=== PATIENT | female | born 1975 | race Caucasian/White ===

== ENCOUNTER 2017-12-03 12:32 | Outpatient (CLI) | payer OTHER | END 2017-12-03 12:33 | disposition home or self-care (01) | LOC: BICMRI 12:32 | PROVIDERS: ATTEND Family Medicine | DX: S49.91XD Unspecified injury of right shoulder and upper arm, subsequent encounter (principal) ==

== ENCOUNTER 2018-01-24 08:24 | Outpatient (CLI) | payer OTHER ==
[2018-01-24] MEDS ORDERED: Iopamidol 300 61% 50 ML VIAL FS ONE (08:45)
[2018-01-24] MEDS ORDERED: Lidocaine 1% PF 10 ML AMP ONE (08:45)
[2018-01-24] MEDS ORDERED: Gadobenate Dimeglumine 529 MG/1 ML (20ML VIAL) ONE (08:45)
[2018-01-24] MEDS ORDERED: EPINEPHrine 1 MG/ML AMP ONE (08:45)
--- NOTE | 2018-01-24 11:03 | RAD ---
RIGHT SHOULDER ARTHROGRAM: HISTORY: A 42-year-old female with a history of right shoulder pain, strain of right shoulder, subsequent enco unter. FINDINGS: Following informed consent, the patient was prepped and draped in the usual sterile fashion. Local a nesthesia was obtained with 1% Xylocaine. A 22-gauge spinal needle was introduced into the anterior superior glenohumeral joint. Approximately 15 cc of iodinated and Gadolinium contrast media was inje cted. Fluoroscopy time 1.4 minutes with 91.2 mGy*^m2. No evidence for extension of contrast into the subac romial bursa. There is evidence for a lateral acromial undersurface spur. IMPRESSION: Successful right shoulder arthrogram. Undersurface lateral acromial spur. The patient was moved to MRI for postarthrogram MRI to follow. POS: [facility]
--- NOTE | 2018-01-24 12:02 | MRI ---
RIGHT SHOULDER MRI WITH ARTHROGRAM CONTRAST: Date: 01/24/18 HISTORY: Right shoulder pain with difficulty lifting and raising above head. Exam was performed following a right shoulder arthrogram. FINDINGS: Multiplanar, multisequence MRI examination demonstrates mild degenerative changes of the AC joint. Th ere is some slight anterior and lateral downsloping of the lateral acromion with a somewhat prominent acromial cortical ligament. The rotator cuff is intact. No rotator cuff tear. Rotator cuff muscles a re within normal limits of signal and volume. The labrum appears unremarkable. No acute osteochondral defect. There is some minimal anterior superior periarticular contrast extension probably secondary to injection. IMPRESSION: No MRI evidence for significant acute internal derangement. AC joint arthrosis changes. No evidence f or labral tear or rotator cuff tear. POS: [facility]
--- NOTE | 2018-01-24 12:06 | MRI ---
MRI CERVICAL SPINE WITHOUT IV CONTRAST: Date: 01/24/18 HISTORY: Strain of right shoulder, subsequent encounter, difficulty lifting and raising right shoulder over he ad. FINDINGS: The vertebral body heights and marrow signal are maintained. There are disc osteophyte complexes at C 4-5-6-7 levels. These cause impingement of the anterior thecal sac without cord impingement or cord c ompression. There is mild left-sided neural foraminal stenosis at C5-6 level. The cervical spinal cor d demonstrate normal course, caliber, and signal. No tonsillar herniation is seen. The paraspinal mus culature is normal. IMPRESSION: Cervical spondylosis with mild left neural foraminal stenosis at C5-6 level. No evidence of cord comp ression. POS: [facility]
== END 2018-01-24 08:25 | disposition home or self-care (01) ==
LOC: RAD 08:24
PROVIDERS: ATTEND Orthopaedic Surgery
DX: S46.911D Strain of unspecified muscle, fascia and tendon at shoulder and upper arm level, right arm, subsequent encounter (principal); M47.892 Other spondylosis, cervical region; M19.011 Primary osteoarthritis, right shoulder; M99.81 Other biomechanical lesions of cervical region
CPT/HCPCS: 23350; 72141; A9579; J0171; J7050

== ENCOUNTER 2018-06-19 12:55 | Outpatient (CLI) | payer OTHER | END 2018-06-19 12:56 | disposition home or self-care (01) | LOC: BICMAMMO 12:55 | PROVIDERS: ATTEND Family Medicine | DX: Z12.31 Encounter for screening mammogram for malignant neoplasm of breast (principal); Z80.3 Family history of malignant neoplasm of breast | CPT/HCPCS: 77063; 77067 ==

== ENCOUNTER 2019-06-05 13:16 | Outpatient (CLI) | payer OTHER | END 2019-06-05 13:17 | disposition home or self-care (01) | LOC: DTY/OP 13:16 | PROVIDERS: ATTEND Surgery | DX: E66.01 Morbid (severe) obesity due to excess calories (principal) | CPT/HCPCS: 97802 ==

== ENCOUNTER 2019-07-06 13:04 | Outpatient (CLI) | payer OTHER | END 2019-07-06 13:05 | disposition home or self-care (01) | LOC: DTY/OP 13:04 | PROVIDERS: ATTEND Surgery | DX: E66.01 Morbid (severe) obesity due to excess calories (principal) | CPT/HCPCS: 97802 ==

== ENCOUNTER 2019-08-03 13:03 | Outpatient (CLI) | payer OTHER | END 2019-08-03 13:04 | disposition home or self-care (01) | LOC: DTY/OP 13:03 | PROVIDERS: ATTEND Surgery | DX: E66.01 Morbid (severe) obesity due to excess calories (principal) | CPT/HCPCS: 97802 ==

== ENCOUNTER 2019-09-02 12:59 | Outpatient (CLI) | payer OTHER | END 2019-09-02 13:00 | disposition home or self-care (01) | LOC: DTY/OP 12:59 | PROVIDERS: ATTEND Surgery | DX: E66.01 Morbid (severe) obesity due to excess calories (principal) | CPT/HCPCS: 36415; 80053; 80061; 81001; 83036; 84439; 84443; 84481; 97802 ==

== ENCOUNTER 2019-09-08 19:47 | Emergency (ER) | payer OTHER ==
[2019-09-08 20:15] LABS: #Basophils 0.1 thou/uL (0.0-0.2); #Eosinphils 0.2 thou/uL (0.0-0.7); #Lymphocytes 4.5 thou/uL (1.20-3.40); #Monocytes 0.5 thou/uL (0.11-0.59); #Neutrophils 4.5 thou/uL (1.40-6.50); %Basophils 1.5 % (0.0-1.0); %Eosinophils 1.9 % (0.0-10.0); %Lymphocytes 45.8 % (21.0-51.0); %Monocytes 4.6 % (0.0-10.0); %Neutrophils 46.3 % (42.0-75.0); Hemoglobin 14.9 g/dL (12.0-16.0); Mean Corpuscular HGB CONC 34.2 g/dL (32.0-36.0); Mean Corpuscular Hemoglobin 30.5 pg (27.0-31.0); Mean Corpuscular Volume 89.3 fL (78.0-98.0); Mean Platelet Volume 8.2 fL (7.4-10.4); Platelet Count 291 thou/uL (130-400); RBC Distribution Width 11.4 % (11.5-14.5); Red Blood Cell (RBC) Count 4.88 mill/uL (4.20-5.40); White Blood Cell (WBC) Count 9.8 thou/uL (4.8-10.8)
[2019-09-08 20:18] LABS: Bilirubin Negative (Negative); Blood, Urine Negative (Negative); Clarity Clear (Clear); Glucose, Urine (Dipstick) Normal (Negative); Leukocyte Negative Leu/uL (Negative); Nitrite Negative (Negative); Protein, Urine (Dipstick) Negative (Neg-Trace); Urobilinogen Normal mg/dL (Less than 2)
--- NOTE | 2019-09-08 20:26 | RAD ---
CHEST ONE VIEW: 09/08/19 HISTORY: Chest pain. COMPARISON: 03/31/13 study. Heart size and mediastinum are within normal limits. Lungs are clear of any focal infiltrative proces s. IMPRESSION: No active intrathoracic disease. POS: [facility]
[2019-09-08 20:30] LABS: Pregnancy Test - Urine (BHCG) Negative (Negative); Pregu Control Background? CLEAR/WHITE (CLR/WHITE); Pregu Control Bar Appear? YES (CONTROL BAR); Specific Gravity 1.012 (1.002-1.036)
[2019-09-08 20:39] LABS: ALT (SGPT) 81 U/L (8-55); AST (SGOT) 61 U/L (5-34); Albumin 4.6 g/dL (3.5-5.0); Alkaline Phosphatase 84 U/L (40-110); Anion Gap 14 mmol/L (10-20); BUN (Urea Nitrogen) 10 mg/dL (7.0-18.7); Bilirubin, Total 0.4 mg/dL (0.2-1.2); CK (CPK) 71 U/L (29-168); Calc. Creatinine Clearance 0 mL/min (70-130); Calcium 9.9 mg/dL (7.8-10.44); Carbon Dioxide 27 mmol/L (22-29); Chloride 104 mmol/L (98-107); Estimated GFR-MDRD 84; Globulin 3.2 g/dL (2.4-3.5); Glucose 116 mg/dL (70-105); Potassium 3.6 mmol/L (3.5-5.1); Protein, Total 7.8 g/dL (6.0-8.3); Sodium 141 mmol/L (136-145)
== END 2019-09-08 21:59 | disposition home or self-care (01) ==
LOC: ERS 19:47
DX: R07.9 Chest pain, unspecified (principal); G43.909 Migraine, unspecified, not intractable, without status migrainosus; E03.9 Hypothyroidism, unspecified; M06.9 Rheumatoid arthritis, unspecified; F32.9 Major depressive disorder, single episode, unspecified; Z79.899 Other long term (current) drug therapy
CPT/HCPCS: 36415; 71045; 80053; 81003; 81025; 82550; 84484; 85025; 93005

== ENCOUNTER 2019-10-28 08:54 | Outpatient (CLI) | payer OTHER ==
--- NOTE | 2019-10-28 11:31 | RAD ---
XR Chest Pa Lat STANDARD HISTORY: Preop COMPARISON: 03/15/2016 exam FINDINGS: Heart size and mediastinum are within normal limits. The lungs are clear of infiltrates. No significant bony findings. IMPRESSION: No active intrathoracic disease.
[2019-10-28 13:00] LABS: #Basophils 0.1 thou/uL (0.0-0.2); #Eosinphils 0.2 thou/uL (0.0-0.7); #Lymphocytes 3.2 thou/uL (1.20-3.40); #Monocytes 0.6 thou/uL (0.11-0.59); #Neutrophils 5.2 thou/uL (1.40-6.50); %Eosinophils 1.6 % (0.0-10.0); %Monocytes 6.1 % (0.0-10.0); %Neutrophils 56.3 % (42.0-75.0); Hemoglobin 13.4 g/dL (12.0-16.0); Mean Corpuscular HGB CONC 33.7 g/dL (32.0-36.0); Mean Corpuscular Hemoglobin 30.8 pg (27.0-31.0); Mean Corpuscular Volume 91.3 fL (78.0-98.0); Mean Platelet Volume 8.6 fL (7.4-10.4); Platelet Count 294 thou/uL (130-400); RBC Distribution Width 11.9 % (11.5-14.5); Red Blood Cell (RBC) Count 4.35 mill/uL (4.20-5.40); White Blood Cell (WBC) Count 9.2 thou/uL (4.8-10.8)
[2019-10-28 13:25] LABS: ALT (SGPT) 66 U/L (8-55); AST (SGOT) 53 U/L (5-34); Albumin 4.2 g/dL (3.5-5.0); Alkaline Phosphatase 74 U/L (40-110); Anion Gap 11 mmol/L (10-20); BUN (Urea Nitrogen) 17 mg/dL (7.0-18.7); Bilirubin, Total 0.4 mg/dL (0.2-1.2); Calc. Creatinine Clearance 0 mL/min (70-130); Calcium 9.6 mg/dL (7.8-10.44); Carbon Dioxide 24 mmol/L (22-29); Chloride 106 mmol/L (98-107); Estimated GFR-MDRD 90; Globulin 2.8 g/dL (2.4-3.5); Glucose 95 mg/dL (70-105); Sodium 137 mmol/L (136-145)
== END 2019-10-28 08:55 | disposition home or self-care (01) ==
LOC: LABBT 08:54
PROVIDERS: ATTEND Surgery
DX: Z01.818 Encounter for other preprocedural examination (principal); E66.01 Morbid (severe) obesity due to excess calories
CPT/HCPCS: 71046; 80053; 83036; 85025; 93005; 93010

== ENCOUNTER 2019-10-28 10:15 | Inpatient (IN) | payer OTHER ==
[2019-12-17] MEDS ORDERED: Dexamethasone 20 MG/5 ML VIAL ONE (10:06)
[2019-12-17] MEDS ORDERED: Rocuronium Bromide 10 MG/ML (10ML VIAL) ONE (10:06)
[2019-12-17] MEDS ORDERED: PROPOFOL 200 MG/20 ML VIAL ONE (10:06)
[2019-12-17] MEDS ORDERED: Ondansetron PF 4 MG/2 ML Vial ONE (10:06)
[2019-12-17] MEDS ORDERED: Lidocaine 1% PF 5 ML VIAL ONE (10:06)
[2019-12-17] MEDS ORDERED: Glycopyrrolate 0.2 MG/ML 5 ML SYRINGE ONE (10:06)
[2019-12-17] MEDS ORDERED: Heparin 5,000 UNITS/ML VIAL ONE (11:15)
[2019-12-17] MEDS ORDERED: Fentanyl 250 MCG/5 ML VIAL ONE (11:51)
[2019-12-17] MEDS ORDERED: Bupivacaine 0.25% HCL 30 ML VIAL ONE (11:53)
[2019-12-17] MEDS ORDERED: Lidocaine 1% w/Epinephrine 1:100K 20 ML VIAL ONE (11:53)
[2019-12-17] MEDS ORDERED: Promethazine HCl 25 MG/ML VIAL IM PRN ×2 (12:39→12:40)
[2019-12-17] MEDS ORDERED: Promethazine HCl 25 MG/ML VIAL SLOW IVP PRN (12:39)
[2019-12-17] MEDS ORDERED: Ondansetron HCl/PF 4 MG/2 ML Vial IVP PRN (12:39)
[2019-12-17] MEDS ORDERED: HYDROmorphone 2 MG/ML VIAL SLOW IVP PRN (12:39)
[2019-12-17] MEDS ORDERED: Meperidine HCl/PF 25 MG/ML VIAL SLOW IVP PRN (12:39)
[2019-12-17] MEDS ORDERED: HYDROmorphone 10 mg/100 ml CADD IVPB PRN (12:40)
[2019-12-17] MEDS ORDERED: diphenhydrAMINE 25 MG CAP PO PRN (12:40)
[2019-12-17] MEDS ORDERED: Naloxone HCl 0.4 mg/ml Vial IV PRN (12:40)
[2019-12-17] MEDS ORDERED: diphenhydrAMINE 50 MG/ML VIAL IM PRN (12:40)
[2019-12-17] MEDS ORDERED: diphenhydrAMINE 50 MG/ML VIAL IVP PRN ×2 (12:40→13:26)
[2019-12-17] MEDS ORDERED: Zolpidem Tartrate 5 MG TAB PO PRN (12:40)
[2019-12-17] MEDS ORDERED: Communication Order-Pharmacy FS SCH (12:45)
[2019-12-17] MEDS ORDERED: Ondansetron PF 4 MG/2 ML Vial IVP PRN (13:26)
[2019-12-17] MEDS ORDERED: hydrALAZINE 20 MG/ML VIAL SLOW IVP PRN (13:26)
[2019-12-17] MEDS ORDERED: Hydrocodone-Acetamin 15 ML UDCUP PO PRN (13:26)
[2019-12-17] MEDS ORDERED: Dextrose 5% in Water 1,000 ML IV PRN (13:26)
[2019-12-17] MEDS ORDERED: Dextrose 50% Abboject 50 ML SYRINGE SLOW IVP PRN (13:26)
[2019-12-17] MEDS ORDERED: HYDROmorphone 2 MG/ML VIAL ONE (13:39)
[2019-12-17] MEDS ORDERED: Fentanyl 100 MCG/2 ML VIAL ONE (14:07)
[2019-12-17] MEDS ORDERED: D5 1/2 NS w/20 mEq KCL 1,000 ML ONE (14:42)
[2019-12-17] MEDS ORDERED: hydrALAZINE 20 MG/ML VIAL ONE (15:12)
--- NOTE | 2019-12-17 16:00 | OP ---
DATE OF PROCEDURE: 12/17/2019 PREOPERATIVE DIAGNOSES: 1. Morbid obesity with a body mass index of 35. 2. Hypertension. POSTOPERATIVE DIAGNOSES: 1. Morbid obesity with a body mass index of 35. 2. Hypertension. 3. Paraesophageal hiatal hernia. PROCEDURES PERFORMED: 1. Laparoscopic sleeve gastrectomy with [place] staple line reinforcements and 38-Tajik bougie. 2. Laparoscopic paraesophageal hiatal hernia repair without fundoplication. 3. Esophagogastroduodenoscopy. ANESTHESIA: General. ESTIMATED BLOOD LOSS: Minimal. COMPLICATIONS: None. SPECIMEN: Stomach. FINDINGS: Hiatal hernia. Normal postoperative EGD. DESCRIPTION OF PROCEDURE: The patient was taken to the operating room and laid supine on the operating room table. After general anesthetic was obtained, arms and legs were double strapped to bariatric table. OG tube was used to decompress the stomach. Left subcostal 5-mm Optiview trocar was placed in usual fashion and high-flow pneumoperitoneum was obtained. A 12-mm ports were placed to the right and left of the umbilicus, 5-mm port placed right subcostal. A 5-mm incision made at the xiphoid and Adam was used to raise the liver off the GE junction. Short gastrics were taken down from the mid body of stomach to the left gabrielle of diaphragm. Left gabrielle, posterior fundus, and angle of His this was completely dissected revealing a hiatal hernia. A circumferential dissection of the esophagus was performed on the medial aspect of the stomach. The bare area was opened, so the right side could be dissected. The fundus of the stomach was brought back down into the abdominal cavity. Short gastrics were taken down to a distance of 6 cm proximal to the pylorus. OG tube was removed and a 38 bougie was brought in its tip, left in the antrum of the stomach. Multiple loads of Schuyler stapling device were used to perform the sleeve. The first fired up at a distance of 6 cm proximal to the pylorus, angled up towards the incisura. Multiple loads were then fired up along the bougie. Stomach was completely transected at the angle of His. The stomach was removed from the left abdominal incision. This fascial defect was closed using GraNee needle and 0 Vicryl tie. A tie knot and 0 Ethibond sutures were used to close the posterior crura utilizing one stitch. The bougie was removed. EGD scope was passed through the esophagus and stomach to the level of duodenum without obstruction. There was no stricture at the incisura. There was no involvement of the staple line with the GE junction. EGD scope was used to decompress the stomach. It was pulled and removed. The Adam retractor was removed under direct visualization without bleeding. All port sites were removed under direct visualization without bleeding and pneumoperitoneum was let down. 4-0 Monocryl and Dermabond were used to close all skin incisions after they were irrigated. The patient was sent to recovery in stable condition. All instrument counts, needle counts, and lap counts were correct. Job ID: [id number]
[2019-12-17] MEDS ORDERED: Pantoprazole 40 MG VIAL IVP SCH (17:45)
[2019-12-17] MEDS: D5 1/2 NS w/20 mEq KCL 1,000 ML IV SCH ×2 (17:47→22:51)
[2019-12-17 19:19] VITALS: BMI 35.9
[2019-12-17] MEDS: Enoxaparin Sodium 40 MG/0.4 ML SYRINGE SC SCH (21:17)
[2019-12-17] MEDS: Ondansetron PF 4 MG/2 ML Vial IVP PRN (23:43)
[2019-12-18] MEDS: D5 1/2 NS w/20 mEq KCL 1,000 ML IV SCH ×3 (03:53→20:58)
[2019-12-18 05:30] LABS: #Lymphocytes 1.8 thou/uL (1.20-3.40); #Monocytes 0.8 thou/uL (0.11-0.59); #Neutrophils 10.5 thou/uL (1.40-6.50); %Basophils 0.2 % (0.0-1.0); %Eosinophils 0.2 % (0.0-10.0); %Lymphocytes 13.5 % (21.0-51.0); %Monocytes 6.3 % (0.0-10.0); %Neutrophils 79.8 % (42.0-75.0); Hemoglobin 13.8 g/dL (12.0-16.0); Mean Corpuscular HGB CONC 33.1 g/dL (32.0-36.0); Mean Corpuscular Hemoglobin 31.1 pg (27.0-31.0); Mean Corpuscular Volume 93.8 fL (78.0-98.0); Mean Platelet Volume 8.3 fL (7.4-10.4); Platelet Count 316 thou/uL (130-400); Red Blood Cell (RBC) Count 4.43 mill/uL (4.20-5.40); White Blood Cell (WBC) Count 13.1 thou/uL (4.8-10.8)
[2019-12-18 05:49] LABS: Anion Gap 13 mmol/L (10-20); BUN (Urea Nitrogen) 6 mg/dL (7.0-18.7); Calc. Creatinine Clearance 145 mL/min (70-130); Calcium 9.7 mg/dL (7.8-10.44); Carbon Dioxide 22 mmol/L (22-29); Chloride 103 mmol/L (98-107); Estimated GFR-MDRD Greater than 90; Glucose 129 mg/dL (70-105); Potassium 4.3 mmol/L (3.5-5.1); Sodium 134 mmol/L (136-145)
[2019-12-18] MEDS: Levothyroxine Sodium 100 MCG TAB PO SCH (06:23)
[2019-12-18] MEDS: Amlodipine 5 MG TAB PO SCH (08:04)
[2019-12-18] MEDS: Losartan 25 MG TAB PO SCH (08:04)
[2019-12-18] MEDS: Ondansetron PF 4 MG/2 ML Vial IVP PRN ×2 (08:04→15:10)
[2019-12-18] MEDS: Pantoprazole 40 MG VIAL IVP SCH (08:04)
[2019-12-18] MEDS ORDERED: traMADol HCl 50 MG TAB PO PRN ×2 (08:31→08:53)
[2019-12-18] MEDS ORDERED: Fentanyl 100 MCG/2 ML VIAL SLOW IVP PRN (08:31)
[2019-12-18] MEDS: traMADol HCl 50 MG TAB PO PRN ×2 (10:33→16:32)
[2019-12-18] MEDS: Promethazine HCl 25 MG/ML VIAL IM PRN ×2 (10:38→20:51)
--- NOTE | 2019-12-18 15:57 | PDOC.GSPN ---
Surgery Progress Note: Subj - Subjective Narrative: c/o nausea throughout day, pain at xiphoid Surgery Progress Note: Obj - Vital signs Vital signs: Vital Signs - Most Recent Temp Pulse Resp BP Pulse Ox 97.8 F 92 18 154/87 H 96 12/18/19 15:15 12/18/19 15:15 12/18/19 15:15 12/18/19 15:15 12/18/19 15:15 - Physical Exam General: no distress Respiratory: clear to auscultation Abdomen: soft, appropriately tender Wound: healing well Surgery Progress Note: Results - Labs Result Diagrams: 12/18/19 05:07 12/18/19 05:06 Lab results: Laboratory Results - last 24 hr 12/18/19 12/18/19 05:06 05:07 WBC 13.1 H RBC 4.43 Hgb 13.8 Hct 41.5 MCV 93.8 MCH 31.1 H MCHC 33.1 RDW 12.0 Plt Count 316 MPV 8.3 Neutrophils % 79.8 H Lymphocytes % 13.5 L Monocytes % 6.3 Eosinophils % 0.2 Basophils % 0.2 Neutrophils # 10.5 H Lymphocytes # 1.8 Monocytes # 0.8 H Eosinophils # 0.0 Basophils # 0.0 Sodium 134 L Potassium 4.3 Chloride 103 Carbon Dioxide 22 Anion Gap 13 BUN 6 L Creatinine 0.66 Estimated GFR (MDRD) Greater than 90 Glucose 129 H Calcium 9.7 Surgery Progress Note: A/P - Problem (1) Morbid obesity Current Visit: Yes Code(s): E66.01 - MORBID (SEVERE) OBESITY DUE TO EXCESS CALORIES Status: Acute - Plan Plan: POD 1 lap sleeve -persistent nausea, plan to keep tonight -dc'd typing checker, using tramadol
[2019-12-18] MEDS: Enoxaparin Sodium 40 MG/0.4 ML SYRINGE SC SCH (20:51)
[2019-12-19] MEDS: Levothyroxine Sodium 100 MCG TAB PO SCH (05:52)
[2019-12-19] MEDS: Ondansetron PF 4 MG/2 ML Vial IVP PRN (05:52)
[2019-12-19] MEDS: D5 1/2 NS w/20 mEq KCL 1,000 ML IV SCH (06:34)
[2019-12-19] MEDS: Amlodipine 5 MG TAB PO SCH (08:56)
[2019-12-19] MEDS: Losartan 25 MG TAB PO SCH (08:57)
[2019-12-19] MEDS: Pantoprazole 40 MG VIAL IVP SCH (08:57)
--- NOTE | 2019-12-19 09:32 | DIS ---
DATE OF ADMISSION: 12/17/2019 DATE OF DISCHARGE: 12/19/2019 ADMITTING DIAGNOSIS: Morbid obesity. DISCHARGE DIAGNOSES: Morbid obesity plus hiatal hernia. PROCEDURES PERFORMED: Sleeve gastrectomy and hiatal hernia repair by Dr. Pena without complication. CONDITION ON DISCHARGE: Improved. STAFF: Danie Pena MD HOSPITAL COURSE: On postop day #1, the patient had persistent moderate nausea, pain in her epigastric area. On postop day #2, her epigastric pain has resolved. Her nausea is much improved. She is able to tolerate some liquids. She is discharged to home. She will follow up with me in 2 weeks. Job ID: [id number]
[2019-12-19 11:24] VITALS: BP 150/94; TEMP 98.5
== END 2019-12-19 12:43 | disposition home or self-care (01) | DRG 621 ==
LOC: SURG A 12-17 09:04 → SJJU 12-17 16:23
PROVIDERS: ADMIT Surgery; ATTEND Surgery
PROC: 0DB64Z3 Excision of Stomach, Percutaneous Endoscopic Approach, Vertical (ICD-10-PCS; principal; 2019-12-17)
PROC: 0BQT4ZZ Repair Diaphragm, Percutaneous Endoscopic Approach (ICD-10-PCS; 2019-12-17)
PROC: 0DJ08ZZ Inspection of Upper Intestinal Tract, Via Natural or Artificial Opening Endoscopic (ICD-10-PCS; 2019-12-17)
DX: E66.01 Morbid (severe) obesity due to excess calories (principal); I10 Essential (primary) hypertension; K44.9 Diaphragmatic hernia without obstruction or gangrene; Z68.35 Body mass index [BMI] 35.0-35.9, adult
CPT/HCPCS: 36415; 80048; 80053; 83036; 85025; 87635; 88307; 88312; C9113; J0360; J0690; J1100; J1170; J1644; J1650; J2001; J2405; J2550; J2704; J3010; J3480; S0020; U0003

== ENCOUNTER 2019-12-16 05:55 | Outpatient (CLI) | payer OTHER ==
[2019-12-16 13:16] LABS: #Basophils 0.1 thou/uL (0.0-0.2); #Eosinphils 0.2 thou/uL (0.0-0.7); #Lymphocytes 3.7 thou/uL (1.20-3.40); #Monocytes 0.6 thou/uL (0.11-0.59); %Basophils 1.4 % (0.0-1.0); %Eosinophils 1.9 % (0.0-10.0); %Lymphocytes 43.3 % (21.0-51.0); %Monocytes 6.5 % (0.0-10.0); %Neutrophils 46.9 % (42.0-75.0); Hemoglobin 13.6 g/dL (12.0-16.0); Mean Corpuscular HGB CONC 33.2 g/dL (32.0-36.0); Mean Corpuscular Hemoglobin 30.8 pg (27.0-31.0); Mean Corpuscular Volume 92.8 fL (78.0-98.0); Mean Platelet Volume 8.8 fL (7.4-10.4); Platelet Count 273 thou/uL (130-400); RBC Distribution Width 11.9 % (11.5-14.5); Red Blood Cell (RBC) Count 4.41 mill/uL (4.20-5.40); White Blood Cell (WBC) Count 8.6 thou/uL (4.8-10.8)
[2019-12-16 13:32] LABS: Hemoglobin A1c 5.9 % (4.0-6.0)
[2019-12-16 13:46] LABS: ALT (SGPT) 68 U/L (8-55); AST (SGOT) 64 U/L (5-34); Albumin 4.2 g/dL (3.5-5.0); Alkaline Phosphatase 79 U/L (40-110); Anion Gap 11 mmol/L (10-20); BUN (Urea Nitrogen) 13 mg/dL (7.0-18.7); Bilirubin, Total 0.4 mg/dL (0.2-1.2); Calc. Creatinine Clearance 0 mL/min (70-130); Calcium 9.8 mg/dL (7.8-10.44); Carbon Dioxide 25 mmol/L (22-29); Chloride 106 mmol/L (98-107); Estimated GFR-MDRD Greater than 90; Glucose 102 mg/dL (70-105); Potassium 3.8 mmol/L (3.5-5.1); Protein, Total 7.2 g/dL (6.0-8.3); Sodium 138 mmol/L (136-145)
[2019-12-16 18:39] LABS: SARS-CoV-2 MS2 Positive; SARS-CoV-2 N Gene Negative; SARS-CoV-2 S Gene Negative; SARS-CoV-2 orf1ab Negative
== END 2019-12-16 05:56 | disposition home or self-care (01) ==
LOC: LABBT 05:55
PROVIDERS: ATTEND Surgery
DX: Z01.812 Encounter for preprocedural laboratory examination (principal); Z11.59 Encounter for screening for other viral diseases; E66.01 Morbid (severe) obesity due to excess calories
CPT/HCPCS: 80053; 83036; 85025; 87635; U0003

== ENCOUNTER 2020-06-29 14:01 | Outpatient (CLI) | payer OTHER ==
--- NOTE | 2020-06-29 14:31 | MMO ---
Bilateral MAMMO Bilat Screen [facility]. CLINICAL HISTORY: Patient is 45 years old and is seen for screening. The patient has the following family history of breast cancer: maternal aunt. The patient has no personal history of cancer. VIEWS: The views performed were: bilateral craniocaudal with tomosynthesis and bilateral mediolateral oblique with tomosynthesis. FILMS COMPARED: The present examination has been compared to prior imaging studies performed at [facility] on 09/15/2009 and 06/19/2018. This study has been interpreted with the assistance of computer-aided detection. MAMMOGRAM FINDINGS: There are scattered fibroglandular densities. There are no suspicious masses, suspicious calcifications, or new areas of architectural distortion. IMPRESSION: THERE IS NO MAMMOGRAPHIC EVIDENCE OF MALIGNANCY. A ROUTINE FOLLOW-UP MAMMOGRAM IN 1 YEAR IS RECOMMENDED. THE RESULTS OF THIS EXAM WERE SENT TO THE PATIENT. ACR BI-RADS Category 1 - Negative MAMMOGRAPHY NOTE: 1. A negative mammogram report should not delay a biopsy if a dominant of clinically suspicious mass is present. 2. Approximately 10% to 15% of breast cancers are not detected by mammography. 3. Adenosis and dense breasts may obscure an underlying neoplasm. Reported by: ARIES YEBOAH MD Electonically Signed: [id number]
== END 2020-06-29 14:02 | disposition home or self-care (01) ==
LOC: BICMAMMO 14:01
PROVIDERS: ATTEND Family Medicine
DX: Z12.31 Encounter for screening mammogram for malignant neoplasm of breast (principal); Z80.3 Family history of malignant neoplasm of breast
CPT/HCPCS: 77063; 77067

== ENCOUNTER 2020-11-20 20:46 | Emergency (ER) | payer OTHER | END 2020-11-21 00:32 | disposition left against medical advice (07) | LOC: ERS 20:46 | DX: Z53.21 Procedure and treatment not carried out due to patient leaving prior to being seen by health care provider (principal) ==

== ENCOUNTER 2021-06-22 21:53 | Emergency (ER) | payer OTHER ==
[2021-06-22] MEDS ORDERED: Acetaminophen 500 MG TAB ONE (22:25)
[2021-06-22] MEDS ORDERED: Metoclopramide HCl 10 MG/2 ML VIAL ONE (22:25)
[2021-06-22] MEDS ORDERED: diphenhydrAMINE 50 MG/ML VIAL ONE (22:25)
== END 2021-06-23 01:15 | disposition home or self-care (01) ==
LOC: ERS 21:53
DX: R51.9 Headache, unspecified (principal); M06.9 Rheumatoid arthritis, unspecified; E06.3 Autoimmune thyroiditis; Z79.899 Other long term (current) drug therapy
CPT/HCPCS: 70450; 96374; 96375; J1200; J2765

== ENCOUNTER 2022-01-02 11:01 | Outpatient (CLI) | payer BC | END 2022-01-02 11:02 | disposition home or self-care (01) | LOC: BICMAMMO 11:01 | PROVIDERS: ATTEND Family Medicine | DX: Z12.31 Encounter for screening mammogram for malignant neoplasm of breast (principal); Z80.3 Family history of malignant neoplasm of breast | CPT/HCPCS: 77063; 77067 ==

== ENCOUNTER 2022-09-18 09:44 | Emergency (ER) | payer BC ==
[2022-09-18 10:21] LABS: Bilirubin Negative (Negative); Blood, Urine Negative (Negative); Clarity Clear (Clear); Glucose, Urine (Dipstick) Normal (Negative); Ketone, Urine Negative (Negative); Leukocyte Negative Leu/uL (Negative); Nitrite Negative (Negative); Protein, Urine (Dipstick) Negative (Neg-Trace); Specific Gravity, Urine 1.006 (1.002-1.036); Urobilinogen Normal mg/dL (Less than 2); pH, Urine 5.5 (5.0-9.0)
[2022-09-18 10:32] LABS: #Basophils 0.1 thou/uL (0.0-0.2); #Eosinphils 0.1 thou/uL (0.0-0.7); #Monocytes 0.4 thou/uL (0.11-0.59); #Neutrophils 2.8 thou/uL (1.40-6.50); %Basophils 0.8 % (0.0-1.0); %Eosinophils 1.5 % (0.0-10.0); %Lymphocytes 47.3 % (21.0-51.0); %Neutrophils 43.4 % (42.0-75.0); Hemoglobin 13.8 g/dL (12.0-16.0); Mean Corpuscular HGB CONC 32.7 g/dL (32.0-36.0); Mean Corpuscular Hemoglobin 31.1 pg (27.0-31.0); Mean Corpuscular Volume 95.1 fl (78.0-98.0); Mean Platelet Volume 7.2 fL (7.4-10.4); Platelet Count 285 10x3/uL (130-400); RBC Distribution Width 11.9 % (11.5-14.5); Red Blood Cell (RBC) Count 4.46 mill/uL (4.20-5.40); White Blood Cell (WBC) Count 6.3 10x3/uL (4.8-10.8)
[2022-09-18 10:47] LABS: BHCG - Serum Negative (NEGATIVE); Pregs Control Background? CLEAR/WHITE (CLR/WHITE); Pregs Control Bar Appear? YES (CONTROL BAR)
[2022-09-18 10:57] LABS: ALT (SGPT) 17 U/L (8-55); AST (SGOT) 17 U/L (5-34); Albumin 3.9 g/dL (3.5-5.0); Alkaline Phosphatase 62 U/L (40-110); Anion Gap 11 mmol/L (10-20); BUN (Urea Nitrogen) 8 mg/dL (7.0-18.7); Bilirubin, Total 0.5 mg/dL (0.2-1.2); Calc. Creatinine Clearance 0 mL/min (70-130); Calcium 9.5 mg/dL (7.8-10.44); Carbon Dioxide 24 mmol/L (22-29); Chloride 107 mmol/L (98-107); Estimated GFR 102; Globulin 2.8 g/dL (2.4-3.5); Glucose 80 mg/dL (70-105); Protein, Total 6.7 g/dL (6.0-8.3); Sodium 138 mmol/L (136-145)
== END 2022-09-18 12:20 | disposition home or self-care (01) ==
LOC: ERS 09:44
DX: R10.30 Lower abdominal pain, unspecified (principal)
CPT/HCPCS: 36415; 74176; 80053; 81003; 83605; 84703; 85025; 87086

== ENCOUNTER 2023-07-26 12:09 | Emergency (ER) | payer BC | END 2023-07-26 15:19 | disposition home or self-care (01) | LOC: ERS 12:09 | DX: M79.605 Pain in left leg (principal) ==

== ENCOUNTER 2023-08-22 10:49 | Emergency (ER) | payer BC ==
[2023-08-22] MEDS ORDERED: Ondansetron PF 4 MG/2 ML Vial ONE (11:09)
[2023-08-22] MEDS ORDERED: traMADol HCl 50 MG TAB ONE (11:09)
[2023-08-22] MEDS ORDERED: fentaNYL 50 mcg/mL 1 mL Vial ONE (11:34)
[2023-08-22 11:36] LABS: #Eosinphils 0.1 thou/uL (0.0-0.7); #Monocytes 0.6 thou/uL (0.11-0.59); #Neutrophils 7.2 thou/uL (1.40-6.50); %Basophils 0.4 % (0.0-1.0); %Eosinophils 0.6 % (0.0-10.0); %Lymphocytes 16.8 % (21.0-51.0); %Monocytes 6.2 % (0.0-10.0); %Neutrophils 75.8 % (42.0-75.0); Hematocrit 35.9 % (36.0-47.0); Hemoglobin 12.5 g/dL (12.0-16.0); Mean Corpuscular HGB CONC 34.8 g/dL (32.0-36.0); Mean Corpuscular Hemoglobin 31.3 pg (27.0-31.0); Mean Corpuscular Volume 89.8 fl (78.0-98.0); Mean Platelet Volume 9.9 fL (7.4-10.4); Platelet Count 224 10x3/uL (130-400); RBC Distribution Width 11.9 % (11.5-14.5); White Blood Cell (WBC) Count 9.5 10x3/uL (4.8-10.8)
[2023-08-22 11:54] LABS: Bacteria/HPF None Seen HPF (None Seen); Bilirubin Negative (Negative); Blood, Urine Negative (Negative); CAUTI Indications for Culture Pelvic or flank pain; Clarity Clear (Clear); Glucose, Urine (Dipstick) Normal (Negative); Ketone, Urine Negative (Negative); Leukocyte Negative Leu/uL (Negative); Nitrite Negative (Negative); Protein, Urine (Dipstick) Negative (Neg-Trace); RBC/HPF 0-3 HPF (0-3); Specific Gravity, Urine 1.014 (1.002-1.036); Squamous Epithelial 0-3 HPF (0-3); Urobilinogen Normal mg/dL (Less than 2); WBC/HPF 0-3 HPF (0-3)
[2023-08-22 12:00] LABS: CRP (Inflammatory) 1.35 mg/dL (= or < 0.5)
[2023-08-22 12:02] LABS: ALT (SGPT) 69 U/L (8-55); AST (SGOT) 206 U/L (5-34); Alkaline Phosphatase 102 U/L (40-110); Anion Gap 14 mmol/L (10-20); BUN (Urea Nitrogen) 8 mg/dL (7.0-18.7); Bilirubin, Total 0.6 mg/dL (0.2-1.2); Calc. Creatinine Clearance 0 mL/min (70-130); Calcium 8.9 mg/dL (7.8-10.44); Carbon Dioxide 21 mmol/L (22-29); Chloride 108 mmol/L (98-107); Estimated GFR 107; Globulin 2.6 g/dL (2.4-3.5); Glucose 109 mg/dL (70-105); Potassium 3.5 mmol/L (3.5-5.1); Protein, Total 6.6 g/dL (6.0-8.3); Sodium 139 mmol/L (136-145)
[2023-08-22 12:04] LABS: Troponin I Less than 0.010 ng/mL (< 0.028)
[2023-08-22 12:22] LABS: Urine Culture Reflex No No
[2023-08-22] MEDS ORDERED: Dicyclomine 20 MG TAB ONE (12:36)
[2023-08-22] MEDS ORDERED: Pantoprazole 40 MG VIAL ONE (12:37)
== END 2023-08-22 13:15 | disposition home or self-care (01) ==
LOC: ERS 10:49
DX: K29.70 Gastritis, unspecified, without bleeding (principal); E06.3 Autoimmune thyroiditis; Z79.899 Other long term (current) drug therapy
CPT/HCPCS: 80053; 81001; 83690; 84484; 85025; 86140; 93005; 96374; 96375; C9113; J2405; J3010

== ENCOUNTER 2023-09-04 09:12 | Outpatient (CLI) | payer BC | END 2023-09-04 09:13 | disposition home or self-care (01) | LOC: ULT 09:12 | PROVIDERS: ATTEND Internal Medicine Gastroenterology | DX: R79.9 Abnormal finding of blood chemistry, unspecified (principal); Z90.49 Acquired absence of other specified parts of digestive tract | CPT/HCPCS: 76705 ==

== ENCOUNTER → 2023-09-06 | Day surgery (SDC) | payer BC ==
[~2023-09-06] MED LIST: Gadobenate Dimeglumine 2 ML, Sodium Chloride 0.9% 250 ML 10 ML, Iopamidol 8 ML, Lidocai... FS SCH; Sodium Bicarbonate 0.5 MEQ/ML SDV 10 ML ONE
== END ==
LOC: RAD 10:09
PROVIDERS: ATTEND Family Medicine Sports Medicine
PROC: BQ00YZZ Plain Radiography of Right Hip using Other Contrast (ICD-10-PCS; principal; 2023-09-06)
DX: M24.159 Other articular cartilage disorders, unspecified hip (principal)
CPT/HCPCS: 27093; A9577; J0171; J7050; Q9967

== ENCOUNTER 2023-09-13 08:45 | Outpatient (CLI) | payer BC | END 2023-09-13 08:46 | disposition home or self-care (01) | LOC: PET 08:45 | PROVIDERS: ATTEND Internal Medicine | DX: D72.820 Lymphocytosis (symptomatic) (principal); R61 Generalized hyperhidrosis | CPT/HCPCS: 78815; A9552 ==

== ENCOUNTER 2023-10-16 07:40 | Outpatient (CLI) | payer BC | END 2023-10-16 07:41 | disposition home or self-care (01) | LOC: SCSMRI 07:40 | PROVIDERS: ATTEND Internal Medicine Gastroenterology | DX: R79.89 Other specified abnormal findings of blood chemistry (principal) | CPT/HCPCS: 74183 ==